=== PATIENT | female | born 1980 | race Two or more races ===

== ENCOUNTER 2018-10-02 17:18 | Emergency (ER) | payer BC ==
[~2018-10-02] VITALS: Ht 152.4 cm; Wt 62.6 kg
[2018-10-02 18:33] VITALS: BP 104/49
== END 2018-10-02 19:06 | disposition home or self-care (01) ==
LOC: ER 17:25
DX: S83.91XA Sprain of unspecified site of right knee, initial encounter (principal); M25.461 Effusion, right knee; X50.1XXA Overexertion from prolonged static or awkward postures, initial encounter; Y93.B9 Activity, other involving muscle strengthening exercises; Y92.89 Other specified places as the place of occurrence of the external cause; Y99.8 Other external cause status
CPT/HCPCS: 29505; 73560

== ENCOUNTER → 2019-12-11 | Emergency (ER) | payer SELFPAY ==
[~2019-12-11] VITALS: Ht 152.4 cm; Wt 61.2 kg
[2019-12-11 02:57] VITALS: BP 135/90
== END | disposition home or self-care (01) ==
LOC: EDUNIT# 02:21 → EDBD 02:36 → ER 02:40
DX: S16.1XXA Strain of muscle, fascia and tendon at neck level, initial encounter (principal); M62.838 Other muscle spasm; Y04.8XXA Assault by other bodily force, initial encounter; Y93.89 Activity, other specified; Y92.9 Unspecified place or not applicable; Y99.8 Other external cause status
CPT/HCPCS: 70450; 72125; 99285; J7030